=== PATIENT | female | born 1995 | race Caucasian/White ===

== ENCOUNTER → 2017-09-18 | Outpatient (CLI) | payer BC ==
--- NOTE | 2017-09-18 12:17 | KCIC ---
SHOULDER 2+V LEFT History: Severe left shoulder pain and limited range of motion after injury yesterday Comparison: None. Findings: 3 views of the left shoulder are submitted. No acute fracture is identified. Left humeral head articulates normally with the glenoid. There is moderate mid thoracic dextroscoliosis. There is very mild prominence of the acromioclavicular distance, right side not available for comparison. Impression: 1. No acute fracture is identified. There is very mild widening of the acromioclavicular distance although the right side not available for comparison. 2. There is thoracic dextroscoliosis. Electronically signed by: Darvin Jordan MD (09/18/2017 12:14 PM) [id number]
== END | disposition home or self-care (01) ==
LOC: KCIC 09:01
PROVIDERS: ATTEND Nurse Practitioner Family
DX: M25.512 Pain in left shoulder (principal)
CPT/HCPCS: 73030

== ENCOUNTER → 2018-12-17 | Outpatient (CLI) | payer BC ==
--- NOTE | 2018-12-17 11:41 | KCIC ---
EXAM: Right foot, 3 views. HISTORY: Pain. COMPARISON: 09/18/2015 FINDINGS: 3 views of the right foot are obtained. There is no fracture, dislocation or subluxation. No lytic or sclerotic osseous lesion is seen. There is no soft tissue lesion. IMPRESSION: No acute osseous finding. Electronically signed by: Renita Styles MD (12/17/2018 11:36 AM) [id number]
== END | disposition home or self-care (01) ==
LOC: KCIC 11:22
PROVIDERS: ATTEND Family Medicine
DX: M79.671 Pain in right foot (principal)
CPT/HCPCS: 73630